=== PATIENT | male | born 1950 | race Caucasian/White ===

== ENCOUNTER 2023-05-02 15:13 | Emergency (ER) | payer MEDICARE, SELFPAY ==
[~2023-05-02] VITALS: Ht 165.1 cm; Wt 88.7 kg
[2023-05-02] MEDS ORDERED: ASPIRIN 81MG CHEW TABLET PO ONE (16:00)
[2023-05-02 17:11] LABS: CK-MB VALUE MASS 2.6 NG/ML (<3.6)
[2023-05-02 17:12] LABS: BASO % 0.5 % (0.0-1.0); EOS # 0.4 10^3/uL (0.0-0.5); HEMATOCRIT 44.9 % (42.0-52.0); HEMOGLOBIN 15.1 g/dl (13.5-17.5); LYMPH # 1.4 10^3/uL (1.5-5.0); LYMPH % 17.6 % (24.0-44.0); MEAN CORPUSCULAR HGB CONC 33.6 g/dl (32.0-36.5); MEAN CORPUSCULAR VOLUME 89.3 fl (80.0-96.0); MONO # 0.8 10^3/uL (0.0-0.8); MONO % 9.2 % (2.0-8.0); NEUTROPHILS # 5.5 10^3/uL (1.5-8.5); NEUTROPHILS % 67.2 % (36.0-66.0); PLATELET COUNT, AUTOMATED 190 10^3/uL (150-450); RED BLOOD COUNT 5.03 10^6/uL (4.30-6.10); WHITE BLOOD COUNT 8.2 10^3/uL (4.0-10.0)
[2023-05-02 17:14] LABS: ALKALINE PHOSPHATASE 83 U/L (46-116); ALT/SGPT 23 U/L (7.0-40); AST/SGOT 16 U/L (<34); BILIRUBIN,DIRECT 0.2 MG/DL (<0.4); BILIRUBIN,TOTAL 0.5 MG/DL (0.3-1.2); BLOOD UREA NITROGEN 19 MG/DL (9-23); CALCIUM LEVEL 9.2 MG/DL (8.3-10.6); CARBON DIOXIDE LEVEL 28 MMOL/L (20-31); CHLORIDE LEVEL 102 MMOL/L (98-107); CREATININE FOR GFR 0.75 MG/DL (0.70-1.30); GLOMERULAR FILTRATION RATE > 60.0 (>42); GLUCOSE, FASTING 91 MG/DL (74-106); POTASSIUM SERUM 3.9 MMOL/L (3.5-5.1); SODIUM LEVEL 139 MMOL/L (136-145); TOTAL PROTEIN 6.8 G/DL (5.7-8.2)
[2023-05-02 17:16] LABS: FREE T4 1.11 NG/DL (0.89-1.76); THYROID STIMULATING HORMONE 3.751 uIU/ML (0.55-4.78)
[2023-05-02 17:21] LABS: CPK CREATINE PHOSPHOKINASE 132 U/L (46-171); MB/CK RELATIVE INDEX 1.96 (< OR =4)
[2023-05-02 17:24] LABS: PROTHROMBIN TIME 12.9 SECONDS (12.5-14.5)
[2023-05-02 17:25] LABS: PARTIAL THROMBOPLASTIN TIME 29.7 SECONDS (24.8-34.2)
[2023-05-02 17:28] LABS: D-DIMER QUANT < 0.27 ug/mL (<0.5)
[2023-05-02 19:30] VITALS: TEMP 98.7
[2023-05-02 19:39] LABS: CK-MB VALUE MASS 2.6 NG/ML (<3.6)
[2023-05-02 19:41] LABS: MB/CK RELATIVE INDEX 2.26 (< OR =4)
[2023-05-02 20:00] VITALS: BP 112/58; O2SAT 94
== END 2023-05-02 20:56 | disposition home or self-care (01) ==
LOC: M ED 15:13
DX: R07.9 Chest pain, unspecified (principal); H53.9 Unspecified visual disturbance; I10 Essential (primary) hypertension; E78.5 Hyperlipidemia, unspecified; Z87.891 Personal history of nicotine dependence